=== PATIENT | female | born 2000 | race Caucasian/White ===

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

== ENCOUNTER 2022-04-01 15:07 | Emergency (ER) | payer MEDICAID ==
[2022-04-01 15:47] LABS: Appearance SLIGHTLY CLOUDY (CLEAR); Bilirubin NEGATIVE (NEGATIVE); Glucose NEGATIVE (NEGATIVE); Ketones TRACE (NEGATIVE); Ph 5.5 (5-6); Protein,Urine Dip TRACE (Negative); RBC NEGATIVE Ery/ul (0-5); Specific Gravity >=1.030 (1.005-1.025)
[2022-04-01 15:48] LABS: Dipstick done @ ? MAIN LAB; Nitrite NEGATIVE (NEGATIVE); Urobilinogen 0.2 mg/dL (0-1)
[2022-04-01 15:49] LABS: Bacteria RARE /HPF (NEGATIVE); Epithelial Cells RARE /HPF (FEW); Mucus SLIGHT /HPF (NEGATIVE); RBC 0-2 /HPF (0-2)
[2022-04-01 15:50] LABS: Urine Cultured Indicated? NO
[2022-04-01 16:00] LABS: Absolute Neutrophil Ct (ANC) 6.28 x10^3/uL (1.4-6.9); Basophil (Absolute #) 0.03 x10^3/uL (0-0.4); Eosinophil % 0.9 % (0.00-5.0); Eosinophil (Absolute #) 0.07 x10^3/uL (0-0.5); Hematocrit 34.4 % (35-47); Hemoglobin 11.6 g/dL (12.0-16.0); Lymphocytes % 14.6 % (24.0-44.0); Mean Cell Volume 84.1 fL (78-100); Mean Corpuscular Hemoglobin 28.4 pg (26-32); Mean Corpuscular Hgb Concent. 33.7 g/dL (32-36); Mean Platelet Volume 9.3 fL (7.5-11.0); Monocyte (Absolute #) 0.63 x10^3/uL (0.0-1.3); Monocytes % 7.7 % (0.0-12.0); Neutrophil % 76.3 % (36.0-66.0); Platelet Count 255 x10^3/uL (150-450); Red Blood Count 4.09 x10^6/uL (4.1-5.4); Red Cell Distribution Width 13.4 % (11.5-14.0); White Blood Count 8.2 x10^3/uL (4.0-10.5)
[2022-04-01 16:10] LABS: ALBUMIN 4.4 g/dL (3.5-5.0); ALKALINE PHOSPHATASE 57 U/L (38-126); ANION GAP 12.7 MEQ/L (5-15); BLOOD UREA NITROGEN 11 mg/dL (7-17); CHLORIDE 102 mmol/L (98-107); Calcium 9.1 mg/dL (8.4-10.2); Carbon Dioxide 23 mmol/L (22-30); Creatinine 1 0.57 mg/dL (0.52-1.04); EST GLOMERULAR FILTRATION RATE > 60.0 ML/MIN; Glucose 88 mg/dL (74-106); Potassium 3.5 mmol/L (3.5-5.1); SGOT/AST 42 U/L (14-36); SGPT/ALT 63 U/L (0-35); SODIUM 134 mmol/L (137-145); Total Protein 7.3 g/dL (6.3-8.2)
--- NOTE | 2022-04-01 16:27 | ERPHSYRPT ---
- History of Present Illness Time Seen by Provider: 04/01/22 15:40 Historian: patient Exam Limitations: no limitations Patient Subjective Stated Complaint: Right sided flank pain Triage Nursing Assessment: Patient ambulated back to ED and transferred self to bed. Patient A+O X 3. Patient's skin pink, warm and dry. Patient currently 13 weeks and complains of right flank pain 5/10 since yesterday. Patient complains of dysuria, but denies urgency or frequency. Abdomen soft and round with BS X 4. Physician History: Patient is a 22-year-old 13 weeks lady with right flank pain. She has a clotting disorder and is on Lovenox and with the flank pain became concerned that it might be a pulmonary embolus etc. She denied any shortness of breath palpitations etc. Timing/Duration: today Activities at Onset: none Quality: cramping Abdominal Pain Onset Location: flank (Right flank) Pain Radiation: groin Severity of Pain-Max: mild Severity of Pain-Current: mild Modifying Factors: Improves With: nothing Associated Symptoms: denies symptoms Previous symptoms: no prior history Allergies/Adverse Reactions: No Known Drug Allergies Allergy (Verified 04/01/22 15:28) Home Medications: Enoxaparin Sodium [Lovenox] 40 mg SQ DAILY 04/01/22 [History] Levothyroxine Sodium 50 Mcg [Synthroid 50 Mcg] 1 tab PO DAILY 04/01/22 [History] Vit 93/Iron Fum/Folic [ Formula Tablet] 1 tab PO DAILY 04/01/22 [History] Hx Tetanus, Diphtheria Vaccination/Date Given: Yes Hx Influenza Vaccination/Date Given: No Hx Pneumococcal Vaccination/Date Given: No Immunizations Up to Date: Yes Travel Risk - International Travel Have you traveled outside of the country in past 3 weeks: No - Coronavirus Screening Are you exhibiting any of the following symptoms?: No Close contact with a COVID-19 positive Pt in past 14-21 Days: No - Vaccine Status Have you recieved a Covid-19 vaccination: No - Review of Systems Constitutional: No Fever, No Chills Eyes: No Symptoms Ears, Nose, & Throat: No Symptoms Respiratory: No Cough, No Dyspnea Cardiac: No Chest Pain, No Edema, No Syncope Abdominal/Gastrointestinal: No Abdominal Pain, No Nausea, No Vomiting, No Diarrhea Genitourinary Symptoms: No Dysuria Musculoskeletal: No Back Pain, No Neck Pain Skin: No Rash Neurological: No Dizziness, No Focal Weakness, No Sensory Changes Psychological: No Symptoms Endocrine: No Symptoms All Other Systems: Reviewed and Negative - Past Medical History Pertinent Past Medical History: Yes Neurological History: No Pertinent History ENT History: No Pertinent History Cardiac History: No Pertinent History Respiratory History: Asthma Endocrine Medical History: Hypothyroidism Musculoskeletal History: Fractures GI Medical History: No Pertinent History History: No Pertinent History Psycho-Social History: Depression Female Reproductive Disorders: No Pertinent History Other Medical History: FX RIGHT THUMB,LIGAMENT INJURY RIGHT WRIST, FRACTURES RIGHT LOWER LEG, Recently (November 2021) started to see a Bulldozer/Loader/Compactor/Scraper, Dr. 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 - Past Surgical History Past Surgical History: Yes Neuro Surgical History: No Pertinent History Cardiac: No Pertinent History Respiratory: No Pertinent History Gastrointestinal: No Pertinent History Genitourinary: No Pertinent History Musculoskeletal: Other Female Surgical History: No Pertinent History Other Surgical History: hand surgery, back surgery - Social History Smoking Status: Never smoker Exposure to second hand smoke: Yes Drug Use: none Patient Lives Alone: No Significant Family History: no pertinent family hx - Female History Hx Last Menstrual Period: 01/19/2022 Hx Now: Yes Expected Date of Delivery: 10/08/22 Gestational Age: 13 weeks - Nursing Vital Signs Nursing Vital Signs: Initial Vital Signs Temperature 97.9 F 04/01/22 15:33 Pulse Rate 86 04/01/22 15:33 Respiratory Rate 18 04/01/22 15:33 Blood Pressure 122/79 04/01/22 15:33 O2 Sat by Pulse Oximetry 99 04/01/22 15:33 Pain Scale Pain Intensity 5 - Physical Exam General Appearance: no apparent distress, alert Eye Exam: PERRL/EOMI, eyes nml inspection Ears, Nose, Throat Exam: normal ENT inspection, pharynx normal, moist mucous membranes Neck Exam: normal inspection, non-tender, supple, full range of motion Respiratory Exam: normal breath sounds, lungs clear, No respiratory distress Cardiovascular Exam: regular rate/rhythm, normal heart sounds Gastrointestinal/Abdomen Exam: soft, No tenderness, No mass Back Exam: normal inspection, normal range of motion, No CVA tenderness, No vertebral tenderness Extremity Exam: normal inspection, normal range of motion, pelvis stable Neurologic Exam: alert, oriented x 3, cooperative, normal mood/affect, nml cerebellar function, sensation nml, No motor deficits Skin Exam: normal color, warm, dry SpO2: 99 - Course Nursing assessment & vital signs reviewed: Yes Ordered Tests: Active Orders 24 hr Category Date Time Status CBC W DIFF Stat Lab 04/01/22 15:50 Completed CMP Stat Lab 04/01/22 15:50 Completed D-DIMER QUANTITATIVE Stat Lab 04/01/22 15:50 Completed UA W/RFX CULTURE Stat Lab 04/01/22 15:33 Completed Lab/Rad Data: Laboratory Result Diagrams 04/01/22 15:50 04/01/22 15:50 Laboratory Results 04/01/22 04/01/22 04/01/22 Range/Units 15:50 15:50 15:50 WBC 8.2 (4.0-10.5) x10^3/uL RBC 4.09 L (4.1-5.4) x10^6/uL Hgb 11.6 L (12.0-16.0) g/dL Hct 34.4 L (35-47) % MCV 84.1 (78-100) fL MCH 28.4 (26-32) pg MCHC 33.7 (32-36) g/dL RDW 13.4 (11.5-14.0) % Plt Count 255 (150-450) x10^3/uL MPV 9.3 (7.5-11.0) fL Gran % 76.3 H (36.0-66.0) % Immature Gran % (Auto) 0.1 (0.00-0.4) % Nucleat RBC Rel Count 0.0 (0.00-0.1) % Eos # (Auto) 0.07 (0-0.5) x10^3/uL Immature Gran # (Auto) 0.01 (0.00-0.03) x10^3u/L Absolute Lymphs (auto) 1.20 (1.0-4.6) x10^3/uL Absolute Monos (auto) 0.63 (0.0-1.3) x10^3/uL Absolute Nucleated RBC 0.00 (0.00-0.01) x10^3u/L Lymphocytes % 14.6 L (24.0-44.0) % Monocytes % 7.7 (0.0-12.0) % Eosinophils % 0.9 (0.00-5.0) % Basophils % 0.4 (0.0-0.4) % Absolute Granulocytes 6.28 (1.4-6.9) x10^3/uL Basophils # 0.03 (0-0.4) x10^3/uL D-Dimer 0.32 (0.0-0.50) mg/L Sodium 134 L (137-145) mmol/L Potassium 3.5 (3.5-5.1) mmol/L Chloride 102 (98-107) mmol/L Carbon Dioxide 23 (22-30) mmol/L Anion Gap 12.7 (5-15) MEQ/L BUN 11 (7-17) mg/dL Creatinine 0.57 (0.52-1.04) mg/dL Estimated GFR > 60.0 ML/MIN Glucose 88 (74-106) mg/dL Calcium 9.1 (8.4-10.2) mg/dL Total Bilirubin 0.30 (0.2-1.3) mg/dL AST 42 H (14-36) U/L ALT 63 H (0-35) U/L Alkaline Phosphatase 57 (38-126) U/L Serum Total Protein 7.3 (6.3-8.2) g/dL Albumin 4.4 (3.5-5.0) g/dL Urinalys Dipstick Clnc Urine Color (YELLOW) Urine Appearance (CLEAR) Urine pH (5-6) Ur Specific [place] (1.005-1.025) POC Urine Protein Conf (Negative) Urine Ketones (NEGATIVE) Urine Nitrite (NEGATIVE) Urine Bilirubin (NEGATIVE) Urine Urobilinogen (0-1) mg/dL Urine Leukocytes (NEGATIVE) Urine WBC (Auto) (0-5) /HPF Urine RBC (Auto) (0-2) /HPF U Epithel Cells (Auto) (FEW) /HPF Urine Bacteria (Auto) (NEGATIVE) /HPF Urine RBC (0-5) Alberto/ul Urine Mucus (Auto) (NEGATIVE) /HPF Ur Culture Indicated? Urine Glucose (NEGATIVE) mg/dL 04/01/22 Range/Units 15:33 WBC (4.0-10.5) x10^3/uL RBC (4.1-5.4) x10^6/uL Hgb (12.0-16.0) g/dL Hct (35-47) % MCV (78-100) fL MCH (26-32) pg MCHC (32-36) g/dL RDW (11.5-14.0) % Plt Count (150-450) x10^3/uL MPV (7.5-11.0) fL Gran % (36.0-66.0) % Immature Gran % (Auto) (0.00-0.4) % Nucleat RBC Rel Count (0.00-0.1) % Eos # (Auto) (0-0.5) x10^3/uL Immature Gran # (Auto) (0.00-0.03) x10^3u/L Absolute Lymphs (auto) (1.0-4.6) x10^3/uL Absolute Monos (auto) (0.0-1.3) x10^3/uL Absolute Nucleated RBC (0.00-0.01) x10^3u/L Lymphocytes % (24.0-44.0) % Monocytes % (0.0-12.0) % Eosinophils % (0.00-5.0) % Basophils % (0.0-0.4) % Absolute Granulocytes (1.4-6.9) x10^3/uL Basophils # (0-0.4) x10^3/uL D-Dimer (0.0-0.50) mg/L Sodium (137-145) mmol/L Potassium (3.5-5.1) mmol/L Chloride (98-107) mmol/L Carbon Dioxide (22-30) mmol/L Anion Gap (5-15) MEQ/L BUN (7-17) mg/dL Creatinine (0.52-1.04) mg/dL Estimated GFR ML/MIN Glucose (74-106) mg/dL Calcium (8.4-10.2) mg/dL Total Bilirubin (0.2-1.3) mg/dL AST (14-36) U/L ALT (0-35) U/L Alkaline Phosphatase (38-126) U/L Serum Total Protein (6.3-8.2) g/dL Albumin (3.5-5.0) g/dL Urinalys Dipstick Clnc MAIN LAB Urine Color YELLOW (YELLOW) Urine Appearance SLIGHTLY CLOUDY A (CLEAR) Urine pH 5.5 (5-6) Ur Specific [place] >=1.030 A (1.005-1.025) POC Urine Protein Conf TRACE A (Negative) Urine Ketones TRACE A (NEGATIVE) Urine Nitrite NEGATIVE (NEGATIVE) Urine Bilirubin NEGATIVE (NEGATIVE) Urine Urobilinogen 0.2 (0-1) mg/dL Urine Leukocytes NEGATIVE (NEGATIVE) Urine WBC (Auto) 3-5 A (0-5) /HPF Urine RBC (Auto) 0-2 (0-2) /HPF U Epithel Cells (Auto) RARE (FEW) /HPF Urine Bacteria (Auto) RARE (NEGATIVE) /HPF Urine RBC NEGATIVE (0-5) Alberto/ul Urine Mucus (Auto) SLIGHT A (NEGATIVE) /HPF Ur Culture Indicated? NO Urine Glucose NEGATIVE (NEGATIVE) mg/dL - Progress Progress: improved - Departure Departure Disposition: Home Clinical Impression: Right flank pain, 13 weeks gestation of Condition: Stable Critical Care Time: No Referrals: ALEXANDRA EUGENE NP [Primary Care Provider] - Follow up/PCP as directed Instructions: Flank Pain
[2022-04-01 16:50] VITALS: BP 95/61; PULSE 91; O2SAT 100
== END 2022-04-01 16:53 | disposition home or self-care (01) ==
LOC: ED 15:07
DX: R10.9 Unspecified abdominal pain (principal); Z33.1 Pregnant state, incidental; D68.9 Coagulation defect, unspecified; Z79.01 Long term (current) use of anticoagulants; Z79.899 Other long term (current) drug therapy; Z28.310 Unvaccinated for COVID-19
CPT/HCPCS: 36415; 80053; 81015; 85025; 85379; 99282

== ENCOUNTER 2023-07-01 10:56 | Day surgery (SDC) | payer OTHER ==
--- NOTE | 2023-06-30 13:24 | HP ---
DATE OF SURGERY: 07/01/2023 HISTORY OF PRESENT ILLNESS: The patient is a 23-year-old female presents with complaints of gallstones. She has had some attacks. She had those after giving . It started in the epigastric area and moved to the back. She has nausea and vomiting. She said pork is a trigger and eating greasy foods. She had an attack that had lasted all day in the past. She almost went to the ER once for this. She does have a lot of diarrhea. Antacids are not helping with any of this. PAST MEDICAL HISTORY: Asthma, thyroid, gastritis, anxiety, depression. PAST SURGICAL HISTORY: section. Tonsillectomy. ALLERGIES: NKDA. MEDICATIONS: Pulmicort, bupropion, Lexapro, Phentermine, albuterol, Proventil. FAMILY HISTORY: None reported. SOCIAL HISTORY: Occasional alcohol. REVIEW OF SYSTEMS: CONSTITUTIONAL: Denies fever or chills. CHEST: Denies shortness of breath. CVS: Denies chest pain. ABDOMEN: Reports upper abdominal pain. PHYSICAL EXAMINATION: GENERAL: No acute distress. CHEST: Nonlabored. No shortness of breath. CVS: Regular rate and rhythm. ABDOMEN: Soft. IMPRESSION: Cholelithiasis. PLAN: Laparoscopic cholecystectomy with Dr. Yosi Hercules. As dictated by Mary Ayala NP.
[2023-07-01] MEDS ORDERED: MEFOXIN 2 GM PREMIX** 2 GM/50 ML ML IV ONE (11:05)
[2023-07-01 11:06] VITALS: RESP 14; O2SAT 100
[2023-07-01 11:06] LABS: HCG URINE TEST NEGATIVE (NEGATIVE)
[2023-07-01] MEDS ORDERED: Lactated Ringers 1,000 ML IV ONE (11:06)
[2023-07-01] MEDS: MEFOXIN 2 GM PREMIX** 2 GM/50 ML ML IV SCH (11:11)
[2023-07-01] MEDS: Lactated Ringers 1,000 ML IV SCH (11:11)
[2023-07-01] MEDS ORDERED: Sensorcaine 0.25% 10 ML ONE (12:38)
[2023-07-01] MEDS ORDERED: Versed 2 MG/2 ML Injection ONE (12:46)
[2023-07-01] MEDS ORDERED: DIPRIVAN 200 MG/20 ML IV ONE (12:46)
[2023-07-01] MEDS ORDERED: SUBLIMAZE 100 MCG/2 ML ONE ×2 (12:46→14:05)
[2023-07-01] MEDS ORDERED: Xylocaine-Mpf 2% 5 Ml Vial ONE (12:47)
[2023-07-01] MEDS ORDERED: Zemuron 100 MG/10 ML ONE (12:47)
[2023-07-01] MEDS ORDERED: Decadron 4 MG INJ ONE (12:47)
[2023-07-01] MEDS ORDERED: Zofran 4 MG/2 ML VIAL ONE (12:47)
[2023-07-01] MEDS ORDERED: TORAdol 30 mg Injection ONE (13:24)
[2023-07-01] MEDS ORDERED: BRIDION 200MG/2ML IV ONE ×2 (13:24→13:41)
[2023-07-01] MEDS ORDERED: Hydromorphone 1 mg/ml Injection ONE (14:03)
[2023-07-01 14:52] VITALS: TEMP 97.7
[2023-07-01] MEDS: NORCO 5/325 MG PO PRN (15:02)
--- NOTE | 2023-07-01 15:10 | OP ---
SURGERY DATE/TIME: 07/01/2023 1300 PREOPERATIVE DIAGNOSIS: Symptomatic cholelithiasis. POSTOPERATIVE DIAGNOSIS: Symptomatic cholelithiasis. PROCEDURE: Laparoscopic cholecystectomy. SURGEON: Dr. Yosi Hercules. ANESTHESIA: General. ESTIMATED BLOOD LOSS: None. COMPLICATIONS: None. CONDITION: Stable. INDICATIONS: A patient with upper abdominal pain. Ultrasound showing stones. DESCRIPTION OF PROCEDURE AND FINDINGS: Taken to surgery. General anesthetic, routine prep and drape. Veress needle inserted. Opening pressure of 1, insufflating pressure 14. Four - 5's. Good visualization. The gallbladder was fairly long about 6 inches packed with stones. Cystic duct defined. Cystic artery defined. Both structures triply clipped and transected. Clips noted across well approximated. Gallbladder rolled out of gallbladder fossa. Gallbladder delivered through the epigastric port. Hole closure device was used with 0 Vicryl. Field was good. CO2 exsufflated. Skin closed with 4-0 Vicryl and Steri-Strips. The patient tolerated the procedure satisfactorily.
[2023-07-01 15:12] VITALS: BP 116/78; PULSE 73
== END 2023-07-01 15:25 | disposition home or self-care (01) ==
LOC: SDC 10:56
PROVIDERS: ATTEND Surgery
DX: K80.20 Calculus of gallbladder without cholecystitis without obstruction (principal)
CPT/HCPCS: 81025; J0694; J1100; J1170; J1885; J2250; J2405; J2704; J3010; A9270-GY